=== PATIENT | female | born 1990 | race Asian ===

== ENCOUNTER 2019-03-09 01:06 | Emergency (ER) | payer MEDICAID, SELFPAY ==
[~2019-03-09] VITALS: Ht 142.2 cm; Wt 40.9 kg
[2019-03-09 01:13] VITALS: BP 103/71
== END 2019-03-09 01:50 | disposition left against medical advice (07) ==
LOC: EMS 01:08
DX: Z53.21 Procedure and treatment not carried out due to patient leaving prior to being seen by health care provider (principal)

== ENCOUNTER 2022-01-14 18:22 | Emergency (ER) | payer OTHER ==
[~2022-01-14] VITALS: Ht 154.9 cm; Wt 40.0 kg
[2022-01-14 18:48] VITALS: BP 93/70
[2022-01-14 20:13] LABS: COVID AG,FIA SOURCE NASOPHARYNGEAL
[2022-01-14 20:23] LABS: AMPHET/METH SCREEN,URINE POSITIVE (NEGATIVE); BARBITURATE SCREEN, URINE NEGATIVE (NEGATIVE); BENZODIAZEPINES SCREEN,URINE NEGATIVE (NEGATIVE); CANNABINOID SCREEN,URINE NEGATIVE (NEGATIVE); COCAINE SCREEN,URINE NEGATIVE (NEGATIVE); METHADONE SCREEN, URINE NEGATIVE (NEGATIVE); OPIATE SCREEN,URINE NEGATIVE (NEGATIVE)
[2022-01-14 20:24] LABS: PHENCYCLIDINE SCREEN,URINE NEGATIVE (NEGATIVE)
== END 2022-01-14 21:26 | disposition left against medical advice (07) ==
LOC: EMS 18:41
DX: Z53.21 Procedure and treatment not carried out due to patient leaving prior to being seen by health care provider (principal); Z20.822 Contact with and (suspected) exposure to COVID-19